=== PATIENT | female | born 1960 | race Hispanic/Latino ===

== ENCOUNTER 2016-06-06 20:37 | Emergency (ER) | payer OTHER, MEDICARE ==
--- NOTE | 2016-06-06 21:20 | Emergency Department Report ---
ED Syncope HPI - General Chief Complaint: Syncope Stated Complaint: SYNCOPAL EPISODE Time Seen by Provider: 06/06/16 20:40 Source: patient, EMS Exam Limitations: no limitations - History of Present Illness Initial Comments: 5-year-old female presents to the emergency department via EMS from [facility] for evaluation of syncope. Patient reports she has a history of POTS and has been having syncopal episodes for over 10 years. Patient states she had 2 episodes today. The last episode occurred while she was receiving her scheduled medication. She reports her heart started to beat fast and then she passed out. Patient states this is the same symptoms she has had for the past 10+ years. At this time, the patient has no complaints. Timing/Prior Episodes: multiple episodes today Precipitating Factors: Positive: rapid heart beat Context: sitting Loss of Consciousness: brief (seconds) Current Symptoms: back to normal ED Review of Systems ROS: Stated complaint: SYNCOPAL EPISODE Other details as noted in HPI Comment: All other systems reviewed and negative Cardiovascular: syncope ED Past Medical Hx - Past Medical History Previous Medical History?: Yes Additional medical history: POTS, Sjogrens Syndrome - Surgical History Past Surgical History?: Yes Additional Surgical History: Back, Hysterectomy - Family History Family history: no significant - Social History Smoking Status: Never Smoker Substance Use Type: None ED Physical Exam - General Limitations: No Limitations General appearance: alert, in no apparent distress - Head Head exam: Present: atraumatic, normocephalic - Eye Eye exam: Present: normal appearance, PERRL, EOMI - ENT ENT exam: Present: normal exam, normal orophraynx, mucous membranes moist - Neck Neck exam: Present: normal inspection, full ROM. Absent: tenderness - Respiratory Respiratory exam: Present: normal lung sounds bilaterally. Absent: respiratory distress - Cardiovascular Cardiovascular Exam: Present: regular rate, normal rhythm, normal heart sounds - GI/Abdominal GI/Abdominal exam: Present: soft, normal bowel sounds. Absent: distended, tenderness - Extremities Exam Extremities exam: Present: normal inspection, full ROM. Absent: tenderness - Back Exam Back exam: Present: normal inspection, full ROM. Absent: tenderness - Neurological Exam Neurological exam: Present: alert, oriented X3. Absent: motor sensory deficit - Skin Skin exam: Present: warm, dry, intact ED Medical Decision Making - Medical Decision Making Patient has a known diagnosis and current presentation is consistent with this diagnosis. Patient will be discharged at this time. - Differential Diagnosis syncope Critical care attestation.: If time is entered above; I have spent that time in minutes in the direct care of this critically ill patient, excluding procedure time. ED Disposition Clinical Impression: POTS (postural orthostatic tachycardia syndrome) Disposition: DC/TX PSY HOSP/PSY UNIT Is pt being admited?: No Condition: Stable Instructions: Syncope (ED) Time of Disposition: 21:20
[2016-06-06 22:03] VITALS: BP 156/87
== END 2016-06-06 21:58 ==
LOC: ED 20:37
DX: I49.8 Other specified cardiac arrhythmias (principal); M35.00 Sjogren syndrome, unspecified; Z90.710 Acquired absence of both cervix and uterus
CPT/HCPCS: 99284